=== PATIENT | male | born 1990 | race Caucasian/White ===

== ENCOUNTER 2024-02-19 13:24 | Emergency (ER) | payer SELFPAY ==
[2024-02-19 13:36] VITALS: BP 140/77; PULSE 102; TEMP 36.6; O2SAT 100; BMI 18.8
--- NOTE | 2024-02-19 13:54 | W.ED.EXTPRO ---
HPI - Extremity Problem General: Chief complaint: Extremity Problem,Nontraumatic Stated complaint: Right leg swollen (spider bite) Time Seen by Provider: 02/19/24 13:41 Source: patient Mode of arrival: ambulatory Limitations: no limitations History of Present Illness: 34yo male here for evaluation of a suspected spider bite to the back of the right leg that he first noticed 3 days ago. Patient reports that he did squeeze the area and has noticed that his become more red and tender over the past 3 days. States that he does have increased discomfort with ambulation. He denies fever, chills, body aches, vomiting, any other concern at this time. Patient reports his tetanus is up-to-date. Associated symptoms: Deny chest pain or fever(s) Related Data Previous Rx's Medication Instructions Recorded doxycycline hyclate 100 mg capsule 100 mg PO BID 7 days #14 caps 02/19/24 ibuprofen 800 mg tablet 800 mg PO Q8H PRN pain #20 tabs 02/19/24 Allergies Allergy/AdvReac Type Severity Reaction Status Date / Time celery Allergy ALGY-Hives Verified 02/19/24 13:40 morphine Allergy ALGY-Swell Verified 02/19/24 13:40 Lip/Tongue/Throat Review of Systems Const: Denies: fever(s), chills or body aches Card: Denies: chest pain Resp: Denies: dyspnea GI: Denies: vomiting Musc: Denies: limited range of motion Skin/Breast: Reports: erythema, skin pain and sores (posterior right thigh) Physical Exam Const: COMMON NORMALS: no acute distress, patient oriented x3, healthy appearing and alert GENERAL APPEARANCE: cooperative ORIENTATION/CONSCIOUSNESS: Yes awake OTHER: Patient is sitting upright on the stretcher in no acute distress. He is able to give history with no difficulty. He is interactive with exam appropriately. Service dog is at bedside HENMT: COMMON NORMALS: normocephalic and Normal external nose present HEAD & SCALP: normocephalic NOSE: Normal external nose present Eye: GENERAL EYE: appearance normal, both eyes and all related structures Neck/C-Spine: COMMON NORMALS: full ROM Chest: CHEST: Yes Symmetrical chest wall rise Resp: COMMON NORMALS: normal respiratory effort EFFORT & INSPECTION: Yes able to speak in complete sentences Extremity: COMMON NORMALS: full ROM Neuro: COMMON NORMALS: patient oriented x3 SENSORIUM/ORIENTATION: Yes alert Psych: COMMON NORMALS: cooperative Skin: GENERAL SKIN EXAM: erythema LESIONS: lesion noted (posterior right thigh) OTHER: Localized erythema to posterior thigh area with a centralized area of purplish discoloration. No palpable abscess Course Vital Signs: Vital signs: Vital Signs Temperature 97.9 F 02/19/24 13:36 Pulse Rate 100 02/19/24 14:00 Respiratory Rate 16 02/19/24 14:00 Blood Pressure 122/66 02/19/24 14:00 Pulse Oximetry 99 02/19/24 14:00 Oxygen Delivery Me thod Room Air 02/19/24 14:00 MDM - Extremity (Nontraumatic) Medical Decision Making 34yo male here for evaluation of a suspected spider bite to the back of his right leg that he noticed 3 days ago. Patient did squeeze the area and has noticed worsening since. States his tetanus is up-to-date. He denies fever, chills, body aches, vomiting, any other concern at this time. Patient is nontoxic in appearance. Vital signs are stable. Differential diagnoses include but are not limited to: Cellulitis, infected insect bite, abscess The general appearance is consistent with a possible spider bites. There is no palpable abscess on exam. Discussed with patient that the erythema surrounding is concerning for a cellulitis. Will proceed with antibiotics as well as anti-inflammatories to help with pain. Encourage patient to take [id number] antihistamines to help with the localized itching as well as application of a cool compress. Encourage patient to follow-up in 2 to 3 days for recheck, sooner if any worsening. Patient is currently traveling and does not have primary care in the area. Recommend returning to the emergency department as needed. Patient states understanding and has no further questions at this time. Medical Records I reviewed the patient's medical records. No radiology studies performed this visit Discharge Plan Discharge Patient Disposition: Home Clinical Impression: Cellulitis Qualifiers: Site of cellulitis: extremity Site of cellulitis of extremity: lower extremity Laterality: right Qualified Code(s): L03.115 - Cellulitis of right lower limb Infected insect bite Qualifiers: Encounter type: initial encounter Qualified Code(s): W57.XXXA - Bitten or stung by nonvenomous insect and other nonvenomous arthropods, initial encounter Condition: Stable Prescriptions: New doxycycline hyclate 100 mg capsule 100 mg PO BID 7 Days Qty: 14 0RF ibuprofen 800 mg tablet 800 mg PO Q8H PRN (Reason: pain) Qty: 20 0RF Discharge Orders: Discharge ED (Routine); Ordered 02/19/24 Ordered By: Álvaro Parsons Discharge Diet: Usual diet Discharge Activity: Resume usual activity Patient Instructions: Pain Management Activity Restrictions/Additional Instructions: Try to avoid squeezing the area as this may make it worsen rapidly Use [id number] antihistamines to help with the itching Doxycycline and high-dose ibuprofen have been sent to your pharmacy to help with infection and discomfort Follow-up for reevaluation in 2 to 3 days, sooner if any rapid worsening, onset of fever, or vomiting with worsening Return to the emergency department as needed Coding Level of Care Code ED Technician Inventory Specialist for [employer]
[2024-02-19] MEDS: ketorolac 30 mg/mL INJ IM (13:58)
[2024-02-19 14:00] VITALS: BP 122/66; PULSE 100; RESP 16; O2SAT 99
[2024-02-19 14:14] VITALS: BP 122/66; PULSE 99; O2SAT 100
== END 2024-02-19 14:15 | disposition home or self-care (01) ==
PROVIDERS: Emergency Provider Nurse Practitioner
DX: L03.115 Cellulitis of right lower limb (principal); W57.XXXA Bitten or stung by nonvenomous insect and other nonvenomous arthropods, initial encounter
CPT/HCPCS: 96372; 99284; J1885